=== PATIENT | male | born 1955 | race Hispanic/Latino ===

== ENCOUNTER 2021-04-02 10:12 | Outpatient (CLI) | payer MEDICARE, BC ==
[2021-04-02 21:21] LABS: SARS-CoV-2 PCR by NAA Not Detected (NotDetected)
== END 2021-04-02 10:13 | disposition home or self-care (01) ==
LOC: CSHLAB 10:12
PROVIDERS: ATTEND Internal Medicine Gastroenterology
DX: Z20.822 Contact with and (suspected) exposure to COVID-19 (principal); Z12.11 Encounter for screening for malignant neoplasm of colon
CPT/HCPCS: 87635; U0003; U0005

== ENCOUNTER 2021-04-07 05:56 | Day surgery (SDC) | payer MEDICARE, BC ==
[2021-04-04 12:19] VITALS: BMI 27.6
[2021-04-07] MEDS ORDERED: Lidocaine 1% MPF 2 ML VIAL ONE (06:51)
[2021-04-07] MEDS ORDERED: PHENYLEPHRINE-NS 100 MCG/ML 10 ML SYRINGE ONE (06:54)
[2021-04-07] MEDS ORDERED: PROPOFOL 40 ML ONE ×2 (06:54→07:51)
== END 2021-04-07 09:08 | disposition home or self-care (01) ==
LOC: CSHSDC 05:56
PROVIDERS: ATTEND Internal Medicine Gastroenterology
DX: Z12.11 Encounter for screening for malignant neoplasm of colon (principal); D12.3 Benign neoplasm of transverse colon; K57.30 Diverticulosis of large intestine without perforation or abscess without bleeding
CPT/HCPCS: 88305; J2704